=== PATIENT | male | born 2000 ===

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

== ENCOUNTER 2018-01-04 17:12 | Emergency (ER) | payer BC ==
[2018-01-04 18:05] VITALS: BP 105/70
--- NOTE | 2018-01-04 19:19 | UC ---
Respiratory Complaint HPI - HPI Summary HPI Summary: 17 y/o male presents to the urgent care c/o body aches, chills NEGRETE, fatigue and a dry cough w. clear nasal discharge and mild sore throat since yesterday. Pt reports his classmate has similar symptoms. Pt has taken Tylenol PO to alleviate symptoms. Pt denies fever, SOB wheezing, abdominal pain, N/V/D, neck pain, or rash, or Hx of tick bite. - History of Current Complaint Chief Complaint: UCRespiratory Stated Complaint: CHILLS,COUGH Time Seen by Provider: 01/04/18 19:15 Hx Obtained From: Patient Onset/Duration: Gradual Onset, Lasting Days - 2 days, Still Present, Worse Since - today Timing: Constant Severity Initially: Mild Severity Currently: Mild Pain Intensity: 4 - sore thraot and body aches Pain Scale Used: 0-10 Numeric Character: Cough: Nonproductive Aggravating Factors: Recumbent Position Alleviating Factors: OTC Meds - tylenol PO Associated Signs And Symptoms: Positive: Chills, URI, Nasal Congestion, Sinus Discomfort. Negative: Dyspnea, Wheezing - Risk Factors Pulmonary Embolism Risk Factors: Negative Cardiac Risk Factors: Negative Pseudomonas Risk Factors: Negative Tuberculosis Risk Factors: Negative - Allergies/Home Medications Allergies/Adverse Reactions: Allergies Allergy/AdvReac Type Severity Reaction Status Date / Time No Known Allergies Allergy Verified 01/04/18 18:05 Home Medications: Home Medications Acetaminophen TAB* [Tylenol TAB*] 650 mg PO ONCE PRN 01/04/18 [History Confirmed 01/04/18] PMH/Surg Hx/FS Hx/Imm Hx Previously Healthy: Yes - Pt dneis PMHX - Surgical History Surgical History: None - Family History Known Family History: Positive: Cardiac Disease - father with [place] at 60 - Social History Occupation: Student Lives: With Family Alcohol Use: None Substance Use Type: None Smoking Status (MU): Never Smoked Tobacco - Immunization History Vaccination Up to Date: Yes Review of Systems All Other Systems Reviewed And Are Negative: Yes Constitutional: Positive: Chills, Fatigue, Other - body aches Skin: Positive: Negative Eyes: Positive: Negative ENT: Positive: Sore Throat, Nasal Discharge - clear, Sinus Congestion, Sinus Pain/Tenderness Respiratory: Positive: Cough - dry Cardiovascular: Positive: Negative Gastrointestinal: Positive: Negative Genitourinary: Positive: Negative Motor: Positive: Negative Neurovascular: Positive: Negative Musculoskeletal: Positive: Myalgia Neurological: Positive: Headache - mild Psychological: Positive: Negative Is Patient Immunocompromised?: No Physical Exam - Summary Physical Exam Summary: VITAL SIGNS: Reviewed. GENERAL: Patient is a well developed and nourished male adolescent who is sitting comfortable in the examining table. Patient is not in any acute respiratory distress. HEAD AND FACE: No signs of trauma. No ecchymosis, hematomas or skull depressions. No sinus tenderness. EYES: PERRLA, EOMI x 2, No injected conjunctiva, no nystagmus. No photophobia. EARS: Hearing grossly intact. Ear canals and tympanic membranes are within normal limits. MOUTH: Positive pharynx with erythema, exudates, palatal petechiae. B/L tonsillar enlargement with exudate. Uvula in midline. NECK: Supple, trachea is midline, Positive anterior cervical lymphadenopathy, no JVD, no carotid bruit, no c-spine tenderness, neck with full ROM. No meningeal signs, no Kernig's or brudzinskis signs. CHEST: Symmetric, no tenderness at palpation LUNGS: Clear to auscultation bilaterally. No wheezing or crackles. CVS: Regular rate and rhythm, S1 and S2 present, no murmurs or gallops appreciated. ABDOMEN: Soft, non-tender. No signs of distention. No rebound no guarding, and no masses palpated. Bowel sounds are normal. EXTREMITIES: FROM in all major joints, no edema, no cyanosis or clubbing. NEURO: Alert and oriented x 3. No acute neurological deficits. Speech is normal and follows commands. SKIN: Dry and warm Triage Information Reviewed: Yes Vital Signs: Initial Vital Signs Temp 99.6 F 01/04/18 18:00 Pulse 89 01/04/18 18:00 Resp 16 01/04/18 18:00 BP 105/70 01/04/18 18:00 Pulse Ox 99 01/04/18 18:00 Diagnostic Evaluation - Laboratory O2 Sat by Pulse Oximetry: 99 Respiratory Course/Dx - Course Course Of Treatment: 17 y/o male presents to the urgent care c/o body aches, chills NEGRETE, fatigue and a dry cough w. clear nasal discharge and mild sore throat since yesterday. Pt reports his classmate has similar symptoms. Pt has taken Tylenol PO to alleviate symptoms. Pt denies fever, SOB wheezing, abdominal pain, N/V/D, neck pain, or rash, or Hx of tick bite. Hx obtained. Pt w / URI on exmination. Rapdi strep=negative, Influenza A&B=negative. Pt advised to increase fluid intake, rest and eat well, Advised to take Ibuprofen, and Delsym PO to alleviate symptoms. D/c instructions explained. Pt understood and agreed with D/C instructions. - Differential Dx/Diagnosis Differential Diagnosis/HQI/PQRI: Asthma, Bronchitis, Influenza, Sinusitis, Other - pharyngitis, URI Provider Diagnosis: Upper respiratory infection, viral Discharge - Sign-Out/Discharge Documenting (check all that apply): Patient Departure - d/c home All imaging exams completed and their final reports reviewed: No Studies - Discharge Plan Condition: Stable Disposition: HOME Patient Education Materials: Upper Respiratory Infection (ED) Referrals: [facility] [facility] REFERRAL [Outside] - 3 Days Additional Instructions: 1-Please take ibuprofen PO q6-8hrs prn as instructed after meals to alleviate pain and swelling. Increase fluid intake, eat well, rest and avoid strenuous exercise 2-Use saline drops apply 2 drops on each nostril to clear your sinuses 3- Take Delsym PO to alleviate cough 4-If symptoms do not improve or worsen please return to the urgent care or f/u with your PCP for further evaluation and treatment. - Billing Disposition and Condition Condition: STABLE Disposition: Home
== END 2018-01-04 20:22 | disposition home or self-care (01) ==
LOC: UCEAST 17:12
DX: J06.9 Acute upper respiratory infection, unspecified (principal)
CPT/HCPCS: 87651; 99211; G0463